=== PATIENT | male | born 1990 | race African-American/Black ===

== ENCOUNTER 2017-12-21 16:46 | Emergency (ER) | payer SELFPAY ==
[2017-12-21 17:00] VITALS: BP 140/82
[2017-12-21] MEDS ORDERED: HYDR-971 PO (17:42)
--- NOTE | 2017-12-21 17:42 | PHYS DOC ---
Adult General Chief Complaint Chief Complaint: HAND PROBLEM HPI HPI Patient is a 27 year old M who presents with left hand pain that started yesterday after a couch fell on his hand. He describes pain and swelling over the back of the hand around the pinky. He does have normal sensation. He has no other associated symptoms. His pain is worse with palpation and movement. He has no other exacerbating or alleviating factors. Review of Systems Review of Systems Constitutional: Denies fever or chills [] Eyes: Denies change in visual acuity, redness, or eye pain [] HENT: Denies nasal congestion or sore throat [] Respiratory: Denies cough or shortness of breath [] Cardiovascular: No additional information not addressed in HPI [] GI: Denies abdominal pain, nausea, vomiting, bloody stools or diarrhea [] : Denies dysuria or hematuria [] Musculoskeletal: Denies back pain Integument: Denies rash or skin lesions [] Neurologic: Denies headache, focal weakness or sensory changes [] Endocrine: Denies polyuria or polydipsia [] All other systems were reviewed and found to be within normal limits, except as documented in this note. Family History Family History No pertinent medical history was reported Current Medications Current Medications Current medications were reviewed Physical Exam Physical Exam Constitutional: Well developed, well nourished, no acute distress, non-toxic appearance. [] HENT: Normocephalic, atraumatic Eyes: EOMI, conjunctiva normal, no discharge. [] Neck: Normal range of motion, no tenderness, supple, no stridor. [] Cardiovascular:Heart rate regular rhythm, no murmur [] Lungs & Thorax: Bilateral breath sounds clear to auscultation [] Skin: Warm, dry, no erythema, no rash. [] Extremities: Left hand: Mild dorsal lateral swelling with mild erythema. Pain in that area. Reduced range of motion in the fifth MCP. Strength testing limited due to pain. Neurovascularly intact Neurologic: Alert and oriented X 3, normal motor function, normal sensory function, no focal deficits noted. [] Psychologic: Affect normal, judgement normal, mood normal. [] Current Patient Data Vital Signs Normal vital signs. Please review nursing document his for specifics EKG EKG [] Radiology/Procedures Radiology/Procedures Left hand x-ray Impressions: Distal fifth metacarpal fracture Course & Med Decision Making Course & Med Decision Making Pertinent Labs and Imaging studies reviewed. (See chart for details) Baljeet was given pain medication and his hand was placed in an ulnar gutter splint.. Normal sensation and capillary refill following placement of the splint. Dragon Disclaimer Dragon Disclaimer This electronic medical record was generated, in whole or in part, using a voice recognition dictation system. Departure Departure: Impression: Primary Impression: Displaced fracture of neck of left fifth metacarpal bone Disposition: 01 HOME, SELF-CARE Condition: STABLE Referrals: PCP,[facility] (PCP) Patient Instructions: Hand Fracture, Fifth Metacarpal Additional Instructions: Baljeet was seen in the emergency department for hand pain. No emergency medical condition was found on history or physical exam. He did have an x-ray that showed a fracture of his hand. He is placed in a splint and given a prescription for pain medication. He is advised follow-up with hand surgery in the next 7-[address] Whaley, Hand surgery [phone] Scripts Hydrocodone Bit/Acetaminophen (NORCO 5-325 TABLET) 1 Each Tablet 1 TAB PO TID for 5 Days, #15 TAB Prov: VIRGINIA AUSTIN MD 12/21/17 Problem Qualifiers Primary Impression: Displaced fracture of neck of left fifth metacarpal bone Encounter type: initial encounter Fracture type: closed Qualified Codes: S62.337A - Displaced fracture of neck of fifth metacarpal bone, left hand, initial encounter for closed fracture VIRGINIA AUSTIN MD Dec 21, 2017 17:42
--- NOTE | 2017-12-22 07:25 | RAD ---
Left hand, 3 views, 12/21/2017: History: Hand pain, injury There is a fracture of the distal fifth metacarpal with mild to moderate volar and radial angulation of the distal fracture fragment. There is slight volar displacement of the distal fracture fragment. There is an old healed fracture of the shaft of the fourth metacarpal. No other fracture or dislocation is identified. IMPRESSION: Acute fracture of the distal fifth metacarpal.
== END 2017-12-21 18:06 | disposition home or self-care (01) ==
LOC: ER 16:46
DX: S62.337A Displaced fracture of neck of fifth metacarpal bone, left hand, initial encounter for closed fracture (principal); W08.XXXA Fall from other furniture, initial encounter; Y93.89 Activity, other specified; Y99.8 Other external cause status; Y92.89 Other specified places as the place of occurrence of the external cause
CPT/HCPCS: 29125; 73130; 96372; 99284; J3010